=== PATIENT | female | born 1935 | race Caucasian/White ===

== ENCOUNTER 2017-01-09 15:29 | Observation (INO) | payer MEDICARE ==
[~2017-01-09 15:29] MED LIST: ASPIR 8181 MG PO; ASPIRIN EC81 MG PO; CARTEOLOL HCL5 ML OP; CHONDROITIN SU250 M1 PO; CPAP; GLUCOSAMINE1000 M1 PO; HUMULIN 70/30 V10 ML; LACRI-LUBE S.O3.5 GM OP; LUBRICANT DRY E OP; NOVOLIN 70100 UNITS/ SC; OCUVITE WITH L1 EACH PO; PRINIVIL20 M1 PO; RESTASIS0.4 ML/EA OP; TRAVATAN Z5 M1 OP; TYLENOL325 M2 PO; ULTRAM50 M1 PO; VALACYCLOVIR1000 MG PO; VIBRAMYCIN100 M1 PO; VITAMIN D; VITAMIN D31000 UNI3 PO; VITAMIN E; VITAMIN E400 UNI4 PO
[2017-01-09] MEDS ORDERED: REFRESH PLUS1 EACH EACH EYE (16:50)
[2017-01-09] MEDS ORDERED: ASPIRIN325 M3 PO (16:51)
[2017-01-09] MEDS ORDERED: CHONDROITIN SU250 M1 PO (16:52)
[2017-01-09] MEDS ORDERED: DAILY VITE1 EACH PO (16:53)
[2017-01-09] MEDS ORDERED: GLUCOSAMINE-CH1 EA29 PO (16:54)
[2017-01-09] MEDS ORDERED: NOVOLIN 70100 UNITS/ SC ×2 (16:56)
[2017-01-09] MEDS ORDERED: VITAMIN D31000 UNI3 PO (16:57)
[2017-01-09] MEDS ORDERED: RESTASIS0.4 ML/EA OP (16:59)
[2017-01-09] MEDS ORDERED: CARTEOLOL HCL5 ML EACH EYE (17:00)
[2017-01-09] MEDS ORDERED: TRAVATAN Z5 M1 EACH EYE (17:00)
[2017-01-09] MEDS ORDERED: VITAMIN E400 UNI4 PO (17:01)
[2017-01-09 17:28] LABS: ALB/GLOB RATIO 0.8 (0.8-2.0); ALBUMIN 3.1 g/dl (3.5-5.0); ALKALINE PHOSPHATASE 83 U/L (33-138); ALT/SGPT 27 U/L (12-78); ANION GAP 10 mmol/L (0-20); AST/SGOT 64 U/L (10-40); BILIRUBIN,TOTAL 0.4 mg/dl (0-1.5); BLOOD UREA NITROGEN 25 mg/dl (6-24); CALCIUM 8.2 mg/dl (8.5-10.5); CARBON DIOXIDE-VENOUS 29 mmol/L (22-32); CHLORIDE 106 mmol/l (96-110); CREATININE 0.95 mg/dl (0.50-1.10); GLUCOSE 269 mg/dL (70-110); POTASSIUM 4.7 mmol/L (3.7-5.1); SODIUM 140 mmol/L (135-145); eGFR VALUE FOR BLACK 64 mL/Min
[2017-01-09 17:32] LABS: TSH-THYROID STIMULATING HORM. 2.25 uIU/ml (0.40-3.80)
[2017-01-11] MEDS ORDERED: ACETAMINOPHEN325 M3 PO (14:57)
[2017-01-11] MEDS ORDERED: AMIODARONE HCL200 M1 PO (14:59)
[2017-01-11] MEDS ORDERED: XARELTO15 M1 PO (15:00)
== END 2017-01-11 18:00 | disposition home health service (06) ==
LOC: CAR1 15:29 → PCUB 19:10
PROVIDERS: ADMIT Internal Medicine Interventional Cardiology
PROC: 5A2204Z Restoration of Cardiac Rhythm, Single (ICD-10-PCS; principal; 2017-01-10)
DX: I48.91 Unspecified atrial fibrillation (principal); M19.90 Unspecified osteoarthritis, unspecified site; E10.9 Type 1 diabetes mellitus without complications; I73.9 Peripheral vascular disease, unspecified; H40.9 Unspecified glaucoma; G47.30 Sleep apnea, unspecified; Z79.4 Long term (current) use of insulin; Z79.82 Long term (current) use of aspirin; Z79.899 Other long term (current) drug therapy; Z90.710 Acquired absence of both cervix and uterus; Z90.89 Acquired absence of other organs; Z98.890 Other specified postprocedural states; R60.9 Edema, unspecified
CPT/HCPCS: G0378; G0379; J0282; J1650; J1815; J7030; Q9967

== ENCOUNTER 2017-01-31 15:57 | Emergency (ER) | payer MEDICARE ==
[~2017-01-31 15:57] MED LIST changes: +ACETAMINOPHEN325 M3 PO; +AMIODARONE HCL200 M1 PO; +ASPIRIN325 M3 PO; +CARTEOLOL HCL5 ML EACH EYE; +DAILY VITE1 EACH PO; +GLUCOSAMINE-CH1 EA29 PO; +REFRESH PLUS1 EACH EACH EYE; +TRAVATAN Z5 M1 EACH EYE; +XARELTO15 M1 PO
[2017-01-31] MEDS ORDERED: ASPIRIN325 M3 PO (19:41)
[2017-01-31] MEDS ORDERED: VIBRAMYCIN100 M1 PO (19:52)
== END 2017-01-31 21:35 ==
LOC: EDMED 15:57
DX: K56.41 Fecal impaction (principal); I48.91 Unspecified atrial fibrillation; E11.9 Type 2 diabetes mellitus without complications; Z79.4 Long term (current) use of insulin; Z90.710 Acquired absence of both cervix and uterus; Z96.651 Presence of right artificial knee joint